=== PATIENT | female | born 1990 ===

== ENCOUNTER 2020-02-08 07:02 | Emergency (ER) | payer OTHER ==
[2020-02-08 07:21] VITALS: BP 133/87
--- NOTE | 2020-02-08 07:27 | UC ---
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 Could not find the tip of the qtip so thought it was left in her right ear Meds; reviewed - History of Current Complaint Chief Complaint: UCEar Stated Complaint: QTIP STUCK IN EAR Time Seen by Provider: 02/08/20 07:16 Pain Intensity: 4 - Allergy/Home Medications Allergies/Adverse Reactions: Allergies Allergy/AdvReac Type Severity Reaction Status Date / Time shellfish derived Allergy GI Upset Verified 02/08/20 07:21 Home Medications: Home Medications NK [No Home Medications Reported] 11/01/13 [History Confirmed 11/01/13] PMH/Surg Hx/FS Hx/Imm Hx Previously Healthy: Yes - Surgical History Surgical History: None - Social History Alcohol Use: Occasionally Substance Use Type: None Smoking Status (MU): Never Smoked Tobacco Review of Systems All Other Systems Reviewed And Are Negative: Yes ENT: Positive: Ear Ache Physical Exam Triage Information Reviewed: Yes Appearance: Well-Appearing Vital Signs: Initial Vital Signs Temp 98.3 F 02/08/20 07:13 Pulse 94 02/08/20 07:13 Resp 18 02/08/20 07:13 BP 133/87 02/08/20 07:13 Pulse Ox 100 02/08/20 07:13 Eyes: Positive: Conjunctiva Clear ENT: Positive: Hearing grossly normal, Other - right TM: Normal. Ext canal: mild erythema. Left TM: normal No foreign body Course/Dx - Course Course Of Treatment: This is a 29 yr old with right ear pain No foreign body Suspect irritation from qtip stick that was placed without the tip in the ear Plan Avoid Qtips in the ears If worsening pain or pain does not resolve, recommend follow up with PCP or return to urgent care - Diagnoses Provider Diagnosis: Earache on right Discharge ED - Sign-Out/Discharge Documenting (check all that apply): Patient Departure All imaging exams completed and their final reports reviewed: No Studies - Discharge Plan Condition: Good Disposition: HOME Referrals: [facility] [Outside] No Primary Care Phys,NOPCP [Primary Care Provider] - Additional Instructions: Avoid Qtips in the ears If worsening pain or pain does not resolve, recommend follow up with PCP or return to urgent care - Billing Disposition and Condition Condition: GOOD Disposition: Home
== END 2020-02-08 07:34 | disposition home or self-care (01) ==
LOC: UCEAST 07:02
DX: H92.01 Otalgia, right ear (principal); H93.8X1 Other specified disorders of right ear; Z91.013 Allergy to seafood
CPT/HCPCS: 69200; 99211; G0463